=== PATIENT | male | born 1980 | race Caucasian/White ===

== ENCOUNTER 2021-09-28 13:01 | Emergency (ER) | payer BC ==
--- NOTE | 2021-09-28 14:15 | CR ---
Chest: PA and lateral views of the chest were obtained. Comparison: Prior chest x-ray of 01/06/18. Heart size and mediastinum are within normal limits. Small nodule is noted within the left upper chest which is stable. Slight linear density is noted within the left lung base most likely representing atelectasis. Lungs otherwise are clear. Partial fusion is seen within 2 lower thoracic vertebral bodies which is chronic. Mild scattered degenerative change is seen within the spine. No additional bony abnormality is appreciated. Impression: 1. Mild atelectasis within the left lung base. 2. Other findings as noted above which are chronic. 3. Nothing acute is otherwise seen on 2 view chest x-ray. Diagnostic code #2
--- NOTE | 2021-09-28 15:08 | EDM.PDOC ---
ED HPI GENERAL MEDICAL PROBLEM - General Chief Complaint: Flank Pain Stated Complaint: SIDE PAIN Time Seen by Provider: 09/28/21 13:40 Source of Information: Reports: Patient, RN Notes Reviewed History Limitations: Reports: No Limitations - History of Present Illness INITIAL COMMENTS - FREE TEXT/NARRATIVE: Patient is a 41-year-old male presenting to the emergency department with complaints of intermittent left-sided chest wall discomfort. Symptoms began around noon yesterday. He describes the pain is intermittent and worsening with deep breathing or movement. Last evening, he was not able to sleep on that side due to discomfort. He was laying on his side today at work could help you. He feels intermittently short of breath due to the discomfort. He feels that he li mike has a "popped rib ". He has not taken any [id number] medications. Denies any chronic medical conditions. Does not have a primary care provider. left ribs Pain Score (Numeric/FACES): 7 - Related Data Allergies Allergy/AdvReac Type Severity Reaction Status Date / Time peanut Allergy Bronchospas Verified 09/28/21 13:37 ms Penicillins Allergy Other Verified 09/28/21 13:37 Home Meds: Home Meds Cyclobenzaprine [Flexeril] 10 mg PO Q8H PRN #10 tab 09/28/21 [Rx] predniSONE [Prednisone] 20 mg PO ASDIRECTED #15 tablet 09/28/21 [Rx] Past Medical History - Past Health History Medical/Surgical History: Denies Medical/Surgical History Social & Family History - Family History Family Medical History: No Pertinent Family History - Tobacco Use Tobacco Use Status *Q: Never Tobacco User Second Hand Smoke Exposure: No - Caffeine Use Caffeine Use: Reports: None Other Caffeine Use: states caffeine makes him itchy and sick - Recreational Drug Use Recreational Drug Use: No ED ROS GENERAL - Review of Systems Review Of Systems: See Below Constitutional: Reports: No Symptoms. Denies: Fever, Chills HEENT: Reports: No Symptoms Respiratory: Reports: Shortness of Breath (intermittent), Pleuritic Chest Pain, Other (left lower chest wall pain) Cardiovascular: Reports: No Symptoms Endocrine: Reports: No Symptoms GI/Abdominal: Reports: No Symptoms : Reports: No Symptoms Musculoskeletal: Reports: No Symptoms Skin: Reports: No Symptoms Neurological: Reports: No Symptoms Psychiatric: Reports: No Symptoms Hematologic/Lymphatic: Reports: No Symptoms Immunologic: Reports: No Symptoms ED EXAM, GENERAL - Physical Exam Exam: See Below Exam Limited By: No Limitations General Appearance: Alert, WD/WN, No Apparent Distress Respiratory/Chest: No Respiratory Distress, Lungs Clear, Normal Breath Sounds, No Accessory Muscle Use, Other (Tenderness to palpation to the left anterior lateral chest wall overlying ribs 6 and 7. No crepitus or step-offs identified.) Cardiovascular: Normal Peripheral Pulses, Regular Rate, Rhythm, No Edema, No Gallop, No JVD, No Murmur, No Rub GI/Abdominal: Normal Bowel Sounds, Soft, Non-Tender, No Organomegaly, No Distention, No Abnormal Bruit, No Mass Neurological: Alert, Oriented, Normal Cognition, Normal Gait, No Motor/Sensory Deficits Psychiatric: Normal Affect, Normal Mood Skin Exam: Warm, Dry, Intact, Normal Color, No Rash #1 Interpretation EKG Date: 09/28/21 Time: 14:15 Rhythm: NSR Rate (Beats/Min): 81 [place]: Normal P-Wave: Present QRS: Normal ST-T: Normal QT: Normal Course - Vital Signs Last Recorded V/S: Last Vital Signs Temp 99 F 09/28/21 13:32 Pulse 97 09/28/21 13:32 Resp 24 H 09/28/21 13:32 BP 136/75 09/28/21 13:32 Pulse Ox 95 09/28/21 13:32 - Orders/Labs/Meds Labs: Laboratory Tests 09/28/21 09/28/21 09/28/21 Range/Units 14:15 14:20 14:20 WBC 9.15 H (4.23-9.07) K/mm3 RBC 4.74 (4.63-6.08) M/mm3 Hgb 13.7 (13.7-17.5) gm/dl Hct 40.8 (40.1-51.0) % MCV 86.1 (79.0-92.2) fl MCH 28.9 (25.7-32.2) pg MCHC 33.6 (32.2-35.5) g/dl RDW Std Deviation 38.7 (35.1-43.9) fL Plt Count 305 (163-337) K/mm3 MPV 9.1 L (9.4-12.3) fl Neut % (Auto) 72.7 H (34.0-67.9) % Lymph % (Auto) 16.7 L (21.8-53.1) % [place] % (Auto) 10.1 (5.3-12.2) % Eos % (Auto) 0.3 L (0.8-7.0) Baso % (Auto) 0.1 (0.1-1.2) % Neut # (Auto) 6.65 H (1.78-5.38) K/mm3 Lymph # (Auto) 1.53 (1.32-3.57) K/mm3 [place] # (Auto) 0.92 H (0.30-0.82) K/mm3 Eos # (Auto) 0.03 L (0.04-0.54) K/mm3 Baso # (Auto) 0.01 (0.01-0.08) K/mm3 D-Dimer, Quantitative 0.33 (0.19-0.50) mg/L Sodium (136-145) mEq/L Potassium (3.5-5.1) mEq/L Chloride (98-107) mEq/L Carbon Dioxide (21-32) mEq/L Anion Gap (5-15) BUN (7-18) mg/dL Creatinine (0.7-1.3) mg/dL Est Cr Clr Drug Dosing mL/min Estimated GFR (MDRD) (>60) mL/min BUN/Creatinine Ratio (14-18) Glucose (70-99) mg/dL Calcium (8.5-10.1) mg/dL Total Bilirubin (0.2-1.0) mg/dL AST (15-37) U/L ALT (16-63) U/L Alkaline Phosphatase (46-116) U/L Troponin I (0.00-0.056) ng/mL Total Protein (6.4-8.2) g/dl Albumin (3.4-5.0) g/dl Globulin gm/dL Albumin/Globulin Ratio (1-2) SARS-CoV-2 RNA (CHALINO) Negative (NEGATIVE) 09/28/21 Range/Units 14:20 WBC (4.23-9.07) K/mm3 RBC (4.63-6.08) M/mm3 Hgb (13.7-17.5) gm/dl Hct (40.1-51.0) % MCV (79.0-92.2) fl MCH (25.7-32.2) pg MCHC (32.2-35.5) g/dl RDW Std Deviation (35.1-43.9) fL Plt Count (163-337) K/mm3 MPV (9.4-12.3) fl Neut % (Auto) (34.0-67.9) % Lymph % (Auto) (21.8-53.1) % [place] % (Auto) (5.3-12.2) % Eos % (Auto) (0.8-7.0) Baso % (Auto) (0.1-1.2) % Neut # (Auto) (1.78-5.38) K/mm3 Lymph # (Auto) (1.32-3.57) K/mm3 [place] # (Auto) (0.30-0.82) K/mm3 Eos # (Auto) (0.04-0.54) K/mm3 Baso # (Auto) (0.01-0.08) K/mm3 D-Dimer, Quantitative (0.19-0.50) mg/L Sodium 140 (136-145) mEq/L Potassium 3.9 (3.5-5.1) mEq/L Chloride 103 (98-107) mEq/L Carbon Dioxide 30 (21-32) mEq/L Anion Gap 10.9 (5-15) BUN 10 (7-18) mg/dL Creatinine 1.1 (0.7-1.3) mg/dL Est Cr Clr Drug Dosing 111.94 mL/min Estimated GFR (MDRD) > 60 (>60) mL/min BUN/Creatinine Ratio 9.1 L (14-18) Glucose 104 H (70-99) mg/dL Calcium 8.5 (8.5-10.1) mg/dL Total Bilirubin 0.9 (0.2-1.0) mg/dL AST 25 (15-37) U/L ALT 44 (16-63) U/L Alkaline Phosphatase 86 (46-116) U/L Troponin I < 0.017 (0.00-0.056) ng/mL Total Protein 7.3 (6.4-8.2) g/dl Albumin 3.7 (3.4-5.0) g/dl Globulin 3.6 gm/dL Albumin/Globulin Ratio 1.0 (1-2) SARS-CoV-2 RNA (CHALINO) (NEGATIVE) - Re-Assessments/Exams Free Text/Narrative Re-Assessment/Exam: 09/28/21 15:59 Hematology is unremarkable. EKG shows normal sinus rhythm with no evidence of acute ischemia. Chest x-ray is normal. Results discussed with patient. Pain is likely due to muscle spasms. We will start him on Flexeril and prednisone. Referral be sent to Dr. Carbajal for ER follow-up and to establish care with primary care provider. Discussed return precautions. Discharge instructions as documented. Departure - Departure Time of Disposition: 16:00 Disposition: Home, Self-Care 01 Condition: Good Clinical Impression: Chest wall pain - Discharge Information *PRESCRIPTION DRUG MONITORING PROGRAM REVIEWED*: No *COPY OF PRESCRIPTION DRUG MONITORING REPORT IN PATIENT RYAN: No Prescriptions: Cyclobenzaprine [Flexeril] 10 mg PO Q8H PRN #10 tab PRN Reason: Muscle Spasm predniSONE [Prednisone] 20 mg PO ASDIRECTED #15 tablet Instructions: Chest Wall Pain, [id number] Referrals: PCP,None [Primary Care Provider] - Forms: ED Department Discharge Additional Instructions: Take the prednisone and Flexeril as prescribed. Use Tylenol as needed for discomfort. Apply heat to the area intermittently. Call to schedule follow-up appointment with Dr. Carbajal tomorrow or the next day. You may also discuss establishing care with him. Return to ER for any new or worsening symptoms. Sepsis Event Note (ED) - Evaluation Sepsis Screening Result: No Definite Risk - Focused Exam Vital Signs: Vital Signs Temp Pulse Resp BP Pulse Ox 09/28/21 13:32 99 F 97 24 H 136/75 95
== END 2021-09-28 16:17 | disposition home or self-care (01) ==
LOC: JD.ED 13:01
DX: R07.89 Other chest pain (principal); Z88.0 Allergy status to penicillin; Z91.010 Allergy to peanuts; Z20.822 Contact with and (suspected) exposure to COVID-19
CPT/HCPCS: 36415; 71046; 71046-26; 80053; 84484; 85025; 85379; 93005; 99284-25; U0002